=== PATIENT | male | born 1990 | race Caucasian/White ===

== ENCOUNTER 2017-05-04 21:20 | Emergency (ER) | payer OTHER ==
[~2017-05-04] VITALS: Ht 185.4 cm; Wt 82.1 kg
[~2017-05-04 21:20] MED LIST: HYDROCODONE-AP1 EAC6 PO; IBUPROFEN 800800 M1 PO; MEDROLDOSEPACK PO; ROBAXIN 750 MG750 M1 PO
[2017-05-04] MEDS ORDERED: HYDROCODONE-AP1 EAC6 PO (21:41)
[2017-05-04] MEDS ORDERED: MOBIC7.5 MG PO (21:42)
[2017-05-04 22:01] VITALS: BP 125/83
== END 2017-05-04 22:00 | disposition home or self-care (01) ==
LOC: ER 21:20
DX: K02.9 Dental caries, unspecified (principal); F10.99 Alcohol use, unspecified with unspecified alcohol-induced disorder; Z88.6 Allergy status to analgesic agent

== ENCOUNTER 2020-04-05 13:41 | Emergency (ER) | payer OTHER ==
[~2020-04-05] VITALS: Ht 182.9 cm; Wt 77.1 kg
[~2020-04-05 13:41] MED LIST changes: +IBUPROFEN 600600 M1 PO; +MOBIC7.5 MG PO
[2020-04-05] MEDS ORDERED: NORCO 5-325 TA1 EAC2 PO (14:57)
[2020-04-05 15:22] VITALS: BP 132/87
== END 2020-04-05 15:23 | disposition home or self-care (01) ==
LOC: ER 13:41
DX: M25.561 Pain in right knee (principal); F17.210 Nicotine dependence, cigarettes, uncomplicated; Z88.6 Allergy status to analgesic agent; W01.0XXA Fall on same level from slipping, tripping and stumbling without subsequent striking against object, initial encounter; Y93.01 Activity, walking, marching and hiking; Y92.89 Other specified places as the place of occurrence of the external cause; Y99.8 Other external cause status